=== PATIENT | male | born 1990 | race Two or more races ===

== ENCOUNTER 2022-08-06 11:27 | Emergency (ER) | payer SELFPAY ==
--- NOTE | ~2022-08-06 | XR_ITS ---
EXAMINATION: XR CHEST CLINICAL INFORMATION: Shortness of breath COMPARISON: None TECHNIQUE: 2 views of the chest were obtained. FINDINGS: Lungs clear. No pleural effusions. Heart and pulmonary vessels normal. XR/XR chest 2V IMPRESSION: No active disease.
[2022-08-06 11:29] VITALS: BP 127/73; PULSE 88; RESP 18; TEMP 36.4; O2SAT 100; BMI 27.4
--- NOTE | 2022-08-06 11:29 | ED_ITS ---
HPI - SOB/Dyspnea General Chief Complaint: Upper Respiratory Symptoms <DANK Gomez - Last Filed: 08/06/22 11:32> Stated Complaint: Diff breathing/Headache <DANK Gomez - Last Filed: 08/06/22 11:32> Time Seen by Provider: 08/06/22 12:08 <DANK Gomez - Last Filed: 08/06/22 11:32> History of Present Illness HPI Narrative: Patient complains of runny nose cough very mild cough no shortness of breath no chest pain body aches and fatigue over the past 3 days, no nausea or vomiting no chest pain no shortness of breath no difficulty breathing or swallowing no vomiting, no sore throat no ear pain no headache, no rash <DANK Jarvis - Last Filed: 09/01/22 14:46> Related Data Home Medications: Previous Rx's Medication Instructions Recorded nirmatrelvir 300 mg (150 mg See Rx Instructions PO .COMPLEX 08/06/22 x2)-ritonavir 100 mg tablet,dose #30 ea pack(EUA) (Paxlovid) <DANK Gomez - Last Filed: 08/06/22 11:32> Allergies/Adverse Reactions: Allergies Allergy/AdvReac Type Severity Reaction Status Date / Time No Known Allergies Allergy Verified 08/06/22 11:29 <DANK Gomez - Last Filed: 08/06/22 11:32> [facility]LY [facility] Past Medical History Source: nursing notes reviewed <DANK Jarvis - Last Filed: 09/01/22 14:46> Social History Social History: Social History Advance Directives: No Advance Directives Information Provided: No <DANK Gomez - Last Filed: 08/06/22 11:32> Physical Exam Vital Signs: Vital Signs: Last Vital Signs Temp 97.6 F 08/06/22 11:29 Pulse 88 08/06/22 11:29 Resp 18 08/06/22 11:29 BP 127/73 08/06/22 11:29 Pulse Ox 100 08/06/22 11:29 O2 Del Method 08/06/22 11:29 BMI result Body Mass Index 27.4 <DANK Gomez - Last Filed: 08/06/22 11:32> Vital Signs: Last Vital Signs Temp 97.6 F 08/06/22 11:29 Pulse 88 08/06/22 11:29 Resp 18 08/06/22 11:29 BP 127/73 08/06/22 11:29 Pulse Ox 100 08/06/22 11:29 O2 Del Method 08/06/22 11:29 BMI result Body Mass Index 27.4 <DANK Jarvis - Last Filed: 09/01/22 14:46> General appearance comfortable no acute distress Eyes no redness or discharge Sinuses nontender The pharynx is clear no redness swelling or exudate membranes are moist Neck is supple Chest clear to auscultation bilateral Heart no murmur Abdomen soft nontender Extremities range of motion x4 <DANK Jarvis - Last Filed: 09/01/22 14:46> Course Course Course Narrative: RME--32yo w/no sig PMHx c/o REILLY, cough, SOB and myalgias x few days. Reports SOB after walking here from [facility]. Denies chest pain, fever, travel Lungs CTA. Vital signs stable COVID-19/influenza and CXR ordered <DANK Gomez - Last Filed: 08/06/22 11:32> RME--32yo w/no sig PMHx c/o REILLY, cough, SOB and myalgias x few days. Reports SOB after walking here from [facility]. Denies chest pain, fever, travel Lungs CTA. Vital signs stable COVID-19/influenza and CXR ordered Patient tested positive for COVID, he is otherwise well-appearing and comfortable at this time and he is discharged with a work note <DANK Jarvis - Last Filed: 09/01/22 14:46> Medical Decision Making Lab Data MDM Lab Attestation statement: I reviewed the patient's lab results. <DANK Jarvis - Last Filed: 09/01/22 14:46> Labs: Lab Results 08/06/22 08/06/22 Range/Units 12:00 12:00 COVID-19 (MARBIN) Positive A (Negative) COVID-19 Clin Com See Note Influenza Type A (JANNA) Negative (Negative) Influenza Type B (JANNA) Negative (Negative) Influenza A & B Note See Note <DANK Gomez - Last Filed: 08/06/22 11:32> Lab Results 08/06/22 08/06/22 Range/Units 12:00 12:00 COVID-19 (MARBIN) Positive A (Negative) COVID-19 Clin Com See Note Influenza Type A (JANNA) Negative (Negative) Influenza Type B (JANNA) Negative (Negative) Influenza A & B Note See Note <DANK Jarvis - Last Filed: 09/01/22 14:46> Discharge Plan Discharge Clinical Impression: COVID <DANK Gomez - Last Filed: 08/06/22 11:32> Patient Disposition: Home, Self-Care <DANK Gomez - Last Filed: 08/06/22 11:32> Additional Instructions: You tested positive for COVID We wrote prescription for paxlovid, the medicine for COVID Be careful a specially round older vulnerable people as it is very contagious Return any time for difficulty breathing any worse condition or any concerns <DANK Gomez - Last Filed: 08/06/22 11:32> Prescriptions: New Paxlovid (EUA) 300 mg (150 mg x 2)-100 mg tablets,dose pack See Rx Instructions .ROUTE .COMPLEX Qty: 30 0RF Rx Instructions: take TWO 150 mg tablets of nirmatrelvir with ONE 100 mg tablet of ritonavir twice daily for 5 days <DANK Gomez - Last Filed: 08/06/22 11:32> Stand Alone Forms: Work/School Release <DNAK Gomez - Last Filed: 08/06/22 11:32> Interventions: ED Discharge Assessment Last Done: 08/06/22 12:56 <DANK Gomez - Last Filed: 08/06/22 11:32> Discharge Date/Time: 08/06/22 12:57 <DANK Gomez - Last Filed: 08/06/22 11:32>
[2022-08-06 12:25] LABS: COVID-19 Test Positive (Negative); IDNOW Serial# 9DB6401D
[2022-08-06 12:36] LABS: IDNOW Serial# BCCEAD1C; Influenza A Negative (Negative); Influenza B2 Negative (Negative)
== END 2022-08-06 12:57 | disposition home or self-care (01) ==
PROVIDERS: Physician Assistant; Emergency Provider Emergency Medicine
DX: U07.1 COVID-19 (principal); R06.02 Shortness of breath
CPT/HCPCS: 71046; 87502; 87635; 99282; 99283

== ENCOUNTER 2025-03-29 12:24 | Emergency (ER) | payer SELFPAY ==
[2025-03-29 12:46] VITALS: BP 135/63; PULSE 64; RESP 16; TEMP 36.8; O2SAT 98; BMI 28.3
--- NOTE | 2025-03-29 12:46 | ED_ITS ---
HPI - General Adult General Chief complaint: Upper Respiratory Symptoms Stated complaint: vomiting,diarrhea Time Seen by Provider: 03/29/25 14:43 Source: patient Mode of arrival: ambulatory Limitations: no limitations History of Present Illness ED Provider: JUAN SCHWARZ narrative: 34 yo male was sick after weekend as was his partner with n/v/d and no fevers or bloody stools - suspects it was [place] food. He missed work and they want a note. He has no fevers, no blood stools, no pain and overall feels well. He has no other issues or complaints. States he feels fine now MD complaint: resolved GI illness Onset (ago): day(s) (few) Location: abdomen Radiation: non-radiation Severity: mild Relieving factors: none Exacerbating factors: none Associated symptoms: denies other symptoms Treatments prior to arrival: none Related Data Previous Rx's ?Medication ?Instructions ?Recorded nirmatrelvir 300 mg (150 mg See Rx Instructions PO .CO MPLEX 08/06/22 x2)-ritonavir 100 mg tablet,dose #30 ea pack (Paxlovid) ondansetron 4 mg disintegrating 4 mg PO Q8H PRN nausea and 03/29/25 tablet vomiting #20 tabs Allergies Allergy/AdvReac Type Severity Reaction Status Date / Time No Known Allergies Allergy Verified 03/29/25 12:48 Review of Systems 2 Review of Systems: Constitutional : No Weight loss, No Fever, No Chills Cardiovascular : No Chest Pain, No SOB, NoEdema Respiratory : No Cough, No Sputum, No Wheezing Gastrointestinal : Positive Nausea, Positive Vomiting, positive Diarrhea, no abd pain Genitourinary : No Dysuria, No Urinary Frequency, No Hematuria, No Urgency Musculoskeletal : No joint pain, No Myalgias, No Joint Swelling Skin : No Skin Lesions, No rash All other systems reviewed and are negative. Yes all other systems are reviewed and are negative [facility] Past Medical History Attestation statement: The following information was validated with the patient. Source: old records reviewed Social History Social History (Updated 03/29/25 @ 14:48 by Cassidy Tse DO) Patient Tobacco Use Status: Tobacco use Unknown Physical Exam ED Vital Signs: Vital Signs - 24 hr 03/29/25 12:46 Temperature 98.3 F Pulse Rate 64 Respiratory Rate 16 Blood Pressure 135/63 Pulse Oximetry 98 Oxygen Delivery Method Room Air BMI result Body Mass Index 28.3 Appearance: Alert. Oriented X3. No acute distress. Eyes: Pupils equal, round and reactive to light. ENT: Pharynx normal. Neck: Normal inspection. Neck supple. CVS: Normal heart rate and rhythm. Pulses normal. Respiratory: No respiratory distress. Breath sounds normal. Abdomen: Soft and nontender. Skin: Skin warm and dry. Normal skin color. Extremities: No lower extremity edema. Neuro: Oriented X 3. No motor deficit. No sensory deficit. Course Course Course Narrative: This is a rapid medical exam performed by Corine Chavez NP: Additional HPI, ROS, PE not included below will be deferred to primary provider. Patient is a 34y/o M presenting to the ED with complaint of cough, congestion, nasuea, vomiting, diarrhea since friday. Has been staying home from work due to sxs. Plan: strep and viral swabs, labs Medical Decision Making Medical Decision Making [facility] Narrative: 34 yo male healthy here with resolved n/v/d after eating [place] food needs work note to return. He has no symptoms now. He has benign exam and tolerating PO. Stable for DC Differential Diagnosis Differential Diagnoses: The differential diagnosis associated with the presentation includes resolved viral syndrome Admission/Observation Consideration of admission/observation: Escalation of care including admission/observation considered not toxic, symptoms resolved here for work note Lab Data [facility] Lab Attestation statement: I reviewed the patient's lab results. 03/29/25 13:47 03/29/25 13:47 Labs: Lab Results 03/29/25 03/29/25 Range/Units 13:44 13:47 WBC 8.9 (4.8-10.8) X10*3/uL RBC 4.93 (4.60-5.80) X10*6/uL Hgb 15.0 (14.0-18.0) g/dl Hct 43.2 (42.0-52.0) % MCV 87.6 (80.0-98.0) fL MCH 30.4 (27.0-33.0) pg MCHC 34.7 (31.0-36.0) g/dl RDW 12.8 (11.0-16.0) % Plt Count 206 (160-400) X10*3/uL MPV 10.7 (9.4-12.4) fL Immature Gran % (Auto) 0.2 (0.0-0.4) % Neut % (Auto) 65.6 (45-73) % Lymph % (Auto) 22.7 (20-40) % Milam % (Auto) 6.2 (2-11) % Eos % (Auto) 4.6 H (0-4) % Baso % (Auto) 0.7 (0-2) % Lymph # (Auto) 2.0 (1.2-4.9) X10*3/uL Milam # (Auto) 0.6 (0.1-1.2) X10*3/uL Eos # (Auto) 0.4 (0.0-0.4) X10*3/uL Baso # (Auto) 0.1 (0.0-0.2) X10*3/uL Abs Immat Gran (auto) 0.02 (0.00-0.03) X10*3/uL Absolute Neuts (auto) 5.9 (2.0-8.3) x10*3/uL Absolute Nucleated RBC 0.000 (0.0-0.012) X10*3/uL Nucleated RBC % (auto) 0.0 (0.0-0.2) /100WBC Sodium 142 (135-145) mmol/L Potassium 4.1 (3.3-5.1) mmol/L Chloride 108 (96-108) mmol/L Carbon Dioxide 28 (22-29) mmol/L Anion Gap 10 L (12-20) BUN 10 (9-16) mg/dL Creatinine 0.75 (0.5-1.4) mg/dL Estim Creat Clear Calc 135.4 Estimated GFR > 60 Random Glucose 89 (60-115) mg/dL Calcium 9.0 (8.4-10.2) mg/dL Magnesium 2.1 (1.6-2.6) mg/dL Total Bilirubin 0.3 (0.0-1.0) mg/dL AST 35 (5-37) U/L ALT 45 H (0-40) U/L Alkaline Phosphatase 66 (39-117) U/L Total Protein 7.0 (6.5-8.0) g/dL Albumin 4.5 (3.5-5.0) g/dL COVID-19 (MARBIN) Negative (Negative) COVID-19 Clin Com See Note Influenza Type A (JANNA) Negative (Negative) Influenza Type B (JANNA) Negative (Negative) Influenza A & B Note See Note S. pyogenes GrpA JANNA Negative (Negative) External Record Review External record reviewed: Outpatient record Prescription Management I considered prescription management with: Other Discharge Plan Discharge Clinical Impression: Acute viral syndrome Instructions: Viral Syndrome (ED) Additional Instructions: negative for covid, flu, strep labs are reassuring return for any worsening pain, bloody stools, fevers or any other concerns stay hydrated Prescriptions: New ondansetron 4 mg tablet,disintegrating 4 mg PO Q8H PRN (Reason: nausea and vomiting) Qty: 20 0RF No Action Paxlovid 300 mg (150 mg x 2)-100 mg tablets,dose pack See Rx Instructions .ROUTE .COMPLEX Qty: 30 0RF Rx Instructions: take TWO 150 mg tablets of nirmatrelvir with ONE 100 mg tablet of ritonavir twice daily for 5 days Stand Alone Forms: Work/School Release Print Language: Armenian
[2025-03-29 13:53] LABS: Hematocrit 43.2 % (42.0-52.0); Hemoglobin 15.0 g/dl (14.0-18.0); Imm Gran Abs Auto 0.02 X10*3/uL (0.00-0.03); Imm Gran Pct Auto 0.2 % (0.0-0.4); Lymphocytes Absolute Auto 2.0 X10*3/uL (1.2-4.9); MANUAL DIFF FLAG NO; Mean Corpuscular HGB Conc 34.7 g/dl (31.0-36.0); Mean Corpuscular Hemoglobin 30.4 pg (27.0-33.0); Mean Corpuscular Volume 87.6 fL (80.0-98.0); NRBC Abs Auto 0.000 X10*3/uL (0.0-0.012); NRBC Pct Auto 0.0 /100WBC (0.0-0.2); Platelet Count 206 X10*3/uL (160-400); Red Blood Count 4.93 X10*6/uL (4.60-5.80); White Blood Count 8.9 X10*3/uL (4.8-10.8)
[2025-03-29 14:08] LABS: IDNOW Serial# 55D5AD1C; Strep A Nucleic Acid Negative (Negative)
[2025-03-29 14:12] LABS: Alanine Aminotransferase 45 U/L (0-40); Albumin Level 4.5 g/dL (3.5-5.0); Alkaline Phosphatase 66 U/L (39-117); Anion Gap 10 (12-20); Aspartate Amino Transferase 35 U/L (5-37); Blood Urea Nitrogen 10 mg/dL (9-16); Calcium 9.0 mg/dL (8.4-10.2); Carbon Dioxide 28 mmol/L (22-29); Chloride 108 mmol/L (96-108); Creatinine Clr Calc Pharmacy 135.4; Estimated Glomerular Filt Rate > 60; Magnesium 2.1 mg/dL (1.6-2.6); Potassium 4.1 mmol/L (3.3-5.1); Sodium 142 mmol/L (135-145); Total Protein 7.0 g/dL (6.5-8.0)
[2025-03-29 14:17] LABS: COVID-19 Test Negative (Negative); IDNOW Serial# 58CA691E; IDNOW Serial# 6674DD1D; Influenza B2 Negative (Negative)
[2025-03-29 14:52] VITALS: BP 135/63; PULSE 64; RESP 16; TEMP 36.8; O2SAT 98
== END 2025-03-29 15:05 | disposition home or self-care (01) ==
LOC: HO.ED 14:53
PROVIDERS: Registered Nurse Emergency; Emergency Provider Emergency Medicine
DX: B34.9 Viral infection, unspecified (principal); R11.10 Vomiting, unspecified; R19.7 Diarrhea, unspecified; Z03.818 Encounter for observation for suspected exposure to other biological agents ruled out
CPT/HCPCS: 36415; 80053; 83735; 85025; 87502; 87635; 87651; 99282; 99283

== ENCOUNTER 2025-05-18 10:31 | Emergency (ER) | payer MEDICAID, SELFPAY ==
--- NOTE | ~2025-05-18 | XR_ITS ---
EXAMINATION: XR CHEST 1 VIEW HISTORY: Coughing and SOB COMPARISON: Comparison is made with the prior examination dated 08/06/2022. FINDINGS: A single PA view of the chest is submitted. The lungs are expanded and clear. There is no pleural effusion, pneumothorax, or pulmonary vascular congestion. The heart is normal in size. The bones are intact. XR/XR chest 1V IMPRESSION: No acute cardiopulmonary abnormality. Electronically signed by: Ryan Freed MD 05/18/2025 11:00 AM [facility]ER[facility]
[2025-05-18 10:40] VITALS: BP 130/60; PULSE 87; RESP 18; TEMP 36.8; O2SAT 97; BMI 25.7
--- NOTE | 2025-05-18 11:01 | ED_ITS ---
HPI - General Adult General Chief complaint: Upper Respiratory Symptoms Stated complaint: diff breathing Time Seen by Provider: 05/18/25 11:04 Source: patient Mode of arrival: ambulatory Limitations: no limitations History of Present Illness ED Provider: Lazaro Prakash HPI narrative: 34 yold male healthy presents to the ED for coughing, bodyaches, chills, sore throat, and fever since yesterday. Patient denies any shortness the breath, recent travel, recent surgery, pleurisy, leg swelling, calf pain, or history of PE. Related Data Previous Rx's ?Medication ?Instructions ?Recorded nirmatrelvir 300 mg (150 mg See Rx Instructions PO .CO MPLEX 08/06/22 x2)-ritonavir 100 mg tablet,dose #30 ea pack (Paxlovid) ondansetron 4 mg disintegrating 4 mg PO Q8H PRN nausea and 03/29/25 tablet vomiting #20 tabs benzonatate 200 mg capsule 200 mg PO TID PRN cough #15 caps 05/18/25 Allergies Allergy/AdvReac Type Severity Reaction Status Date / Time No Known Allergies Allergy Verified 05/18/25 10:41 Review of Systems Review of Systems: Coughing, fever, body aches, sore throat Yes all other systems are reviewed and are negative [facility] Social History Social History (Updated 03/29/25 @ 14:48 by Cassidy Tse DO) Patient Tobacco Use Status: Tobacco use Unknown Advance Directives: No Advance Directives Information Provided: Yes Do you have a plan to hurt others: No Plan Physical Exam ED Vital Signs: Vital Signs - 24 hr 05/18/25 10:40 Temperature 98.2 F Pulse Rate 87 Respiratory Rate 18 Blood Pressure 130/60 Pulse Oximetry 97 Oxygen Delivery Method Room Air BMI result Body Mass Index 25.7 Const Orientation/consciousness: patient oriented x3 HENMT Head: Yes normal to inspection, Yes No palpable skull fracture present, Yes normocephalic and Yes atraumatic Ears: hearing grossly normal bilaterally, external ears normal, TM's normal bilaterally, TM normal on the right, TM normal on the left, EAC's normal, mastoids normal and no periauricular adenopathy Throat: Yes posterior oropharynx normal, Yes tonsils normal and Yes uvula midline Eyes General: appearance normal, both eyes and all related structures Neck Neck: Yes normal visual inspection, Yes full ROM, Yes no lymphadenopathy, Yes no meningeal signs, Yes trachea midline, Yes supple, No anterior neck swelling and No tender Chest Chest palpation & inspection: normal inspection of the chest and normal palpati on of entire chest wall Resp Effort & Inspection: normal respiratory effort and able to speak in complete sentences Cardio Jugular venous distension: no JVD Heart sounds: S1 normal heart sound present and S2 normal heart sound present GI Inspection: Yes normal to inspection Palpation (GI): Soft to palpation, not firm, nontender, no guarding and not rigid General: Yes no CVA tenderness Back/Spine/Pelvis Back: no CVA tenderness and No back tenderness Skin General skin exam: no rashes or lesions noted, elasticity normal and turgor normal Neuro General: patient oriented x3, gait normal, tone normal, moves all extremities, Normal light touch and pain sensation, no meningeal signs, no focal motor deficits, CN's II-XI intact bilaterally and normal sensation to monofilament Extrem General: Yes normal to inspection, Yes full ROM and Yes capillary refill normal Psych Appearance: grossly normal, well kempt and not disheveled Course Course Course Narrative: RME: 34-year-old male presents to ED for cough fever body aches sore throat since Friday. Patient has last had a fever yesterday. Patient denies any chest pain or shortness of breath. SARs strep x-ray ordered Medical Decision Making Medical Decision Making [facility] Narrative: 34-year-old male presents to ED for coughing fever body aches and sore throat since Friday. Patient denies any chest pain or shortness of breath. Patient is not pleurisy. SARs strep ordered. 12:31pm: patient influenza, RSV, covid, and strep came back negative. Chest xray negative. Patient explained worrisome signs and informed to return to the ED. Not suspecting respiratory failure, PE, SD, CHF, Myocarditits, or any other life threatening etiology. Differential Diagnosis Differential Diagnoses: The differential diagnosis associated with the presentation includes (pneumonia) Admission/Observation Consideration of admission/observation: Escalation of care including admission/observation considered Lab Data [facility] Lab Attestation statement: I reviewed the patient's lab results. Labs: Lab Results 05/18/25 Range/Units 11:13 Influenza Type A (PCR) NEGATIVE (Negative) Influenza Type B (PCR) NEGATIVE (Negative) RSV RNA Qual (PCR) NEGATIVE (Negative) SARS-CoV-2 RNA (RT-PCR) NEGATIVE (Negative) S. pyogenes GrpA JANNA Negative (Negative) Independent Interpretation I performed an independent interpretation of an: Plain X-Ray Radiology Impression Discussion of test interpretation with radiology: I have reviewed the radiologist's reading. Independent Historian Clinical information obtained from an independent historian. History obtained from or confirmed by: Other Prescription Management I considered prescription management with: Other (emile espino) Discharge Plan Discharge Clinical Impression: Upper respiratory infection Patient Disposition: Home, Self-Care Instructions: Upper Respiratory Infection (ED) Additional Instructions: Recommend follow up with the primary care provider. Return to the ED immediatel y for any chest pain, shortness of breath, coughing up blood, weakness, intractable fever, chills, abdominal pain, or any other concerning symptoms. Prescriptions: New benzonatate 200 mg capsule 200 mg PO TID PRN (Reason: cough) Qty: 15 0RF No Action Paxlovid 300 mg (150 mg x 2)-100 mg tablets,dose pack See Rx Instructions .ROUTE .COMPLEX Qty: 30 0RF Rx Instructions: take TWO 150 mg tablets of nirmatrelvir with ONE 100 mg tablet of ritonavir t wice daily for 5 days ondansetron 4 mg tablet,disintegrating 4 mg PO Q8H PRN (Reason: nausea and vomiting) Qty: 20 0RF Stand Alone Forms: Work/School Release Interventions: ED Discharge Assessment Last Done: 05/18/25 12:43 Discharge Date/Time: 05/18/25 12:44 Print Language: Romanian
[2025-05-18 11:34] LABS: IDNOW Serial# 55D5AD1C; Strep A Nucleic Acid Negative (Negative)
[2025-05-18 12:02] LABS: Resp Syncy Virus RNA Qual PCR NEGATIVE (Negative); SARS COV2 PCR INHOUSE NEGATIVE (Negative)
[2025-05-18 12:43] VITALS: BP 130/60; PULSE 87; RESP 18; TEMP 36.8; O2SAT 97
== END 2025-05-18 12:44 | disposition home or self-care (01) ==
LOC: HO.ED 12:42
PROVIDERS: Physician Assistant; Emergency Provider Emergency Medicine
DX: J06.9 Acute upper respiratory infection, unspecified (principal); R05.9 Cough, unspecified; R06.02 Shortness of breath; R50.9 Fever, unspecified; J02.9 Acute pharyngitis, unspecified; Z01.818 Encounter for other preprocedural examination
CPT/HCPCS: 71045; 87637; 87651; 99282; 99283

== ENCOUNTER → 2025-05-18 10:42 | Outpatient (BNV) | payer SELFPAY | PROVIDERS: Emergency Provider Emergency Medicine; Visit Provider Radiology Diagnostic Radiology | DX: R05.9 Cough, unspecified (principal); R06.02 Shortness of breath | CPT/HCPCS: 71045 ==